=== PATIENT | female | born 1950 | race Caucasian/White ===

== ENCOUNTER 2017-12-03 05:20 | Inpatient (IN) | payer BC, MEDICARE ==
[~2017-12-03] VITALS: Ht 175.3 cm; Wt 61.0 kg
[2017-12-03] MEDS ORDERED: SODIUM CHLORIDE FLUSH 10ML SYR IVF ONE (06:00)
[2017-12-03] MEDS ORDERED: MORPHINE SULFATE 4 MG/ML, 1ML ONE (06:53)
[2017-12-03] MEDS ORDERED: morphine SULFATE 10 MG/ML, 1ML IVPush ONE (07:00)
[2017-12-03] MEDS ORDERED: MORPHINE SULFATE 4 MG/ML, 1ML IVPush PRN (09:00)
[2017-12-03] MEDS ORDERED: KETOROLAC 30 MG/1 ML IVPush ONE (09:00)
[2017-12-03 09:17] LABS: BASOPHILS % (AUTO) 0 % (0-1); EOSINOPHILS # (AUTO) 0.02 x10^3/uL (0-0.4); EOSINOPHILS % (AUTO) 0 % (1-7); LYMPHOCYTES # (AUTO) 1.74 x10^3/uL (1-3.4); LYMPHOCYTES % (AUTO) 19 % (22-44); MD NO; MEAN CORPUSCULAR HEMOGLOBIN 33.9 pg (27.0-34.8); MEAN CORPUSCULAR HGB CONC 33.8 g/dL (32.4-35.8); MEAN CORPUSCULAR VOLUME 100.3 fL (80-100); MEAN PLATELET VOLUME 10.3 fL (7.4-10.4); MONOCYTES % (AUTO) 7 % (2-9); NEUTROPHILS # (AUTO) 6.68 x10^3/uL (1.8-6.8); NEUTROPHILS % (AUTO) 74 % (42-75); PLATELET COUNT 157 x10^3/uL (130-400); RED BLOOD COUNT 4.02 x10^6/uL (3.82-5.3); RED CELL DISTRIBUTION WIDTH 12.7 % (9.6-15.2)
[2017-12-03 09:24] LABS: INTERNATIONAL NORMALIZED RATIO 1.04 (0.93-1.1); PROTHROMBIN TIME 10.7 Seconds (9.6-11.5)
[2017-12-03 09:27] LABS: ANION GAP 8 mmol/L (5-15); CALCIUM 8.7 mg/dL (8.5-10.1); CHLORIDE 107 mmol/L (98-107)
[2017-12-03] MEDS ORDERED: LORazepam 2 MG/ML, 1ML IV PRN ×5 (09:30)
[2017-12-03 09:46] VITALS: BP 152/69
[2017-12-03] MEDS ORDERED: D5%-LACTATED RINGERS 1,000 ML IV SCH (11:00)
[2017-12-03] MEDS ORDERED: LIDOCAINE-MPF 2% ,5ML ONE (11:11)
[2017-12-03] MEDS ORDERED: PROPOFOL 10 MG/ML, 20ML ONE (11:11)
[2017-12-03] MEDS ORDERED: CEFAZOLIN 1,000 MG ONE (11:11)
[2017-12-03] MEDS ORDERED: ROCURONIUM 10MG/ML,5ML ONE (11:11)
[2017-12-03] MEDS ORDERED: BUPIVACAINE/PF 0.25% ONE (11:14)
[2017-12-03] MEDS ORDERED: MIDAZOLAM 1 MG/ML, 2ML ONE (11:15)
[2017-12-03] MEDS ORDERED: FENTANYL PF 100 MCG/2ML ONE (11:15)
[2017-12-03] MEDS ORDERED: OXYcodone 5 MG/5 ML ORAL.SOL UDC PO PRN (11:30)
[2017-12-03] MEDS ORDERED: ALBUTEROL SULFATE 2.5 MG/3 ML NPPB PRN ×2 (11:30→22:30)
[2017-12-03] MEDS ORDERED: ONDANSETRON 2MG/ML, 2ML IVPush PRN (11:30)
[2017-12-03] MEDS ORDERED: ACETAMINOPHEN 325 MG TABLET PO PRN ×2 (11:30→15:30)
[2017-12-03] MEDS ORDERED: METOPROLOL 1 MG/ML, 5ML IV PRN (11:30)
[2017-12-03] MEDS ORDERED: MEPERIDINE/PF 25MG/0.5ML IVPush PRN (11:30)
[2017-12-03] MEDS ORDERED: EPHEDRINE 50 MG/ML, 1ML IVPush PRN (11:30)
[2017-12-03] MEDS ORDERED: morphine SULFATE 10 MG/ML, 1ML IV PRN (11:30)
[2017-12-03] MEDS ORDERED: hydrALAzine 20 MG/ML, 1ML IV PRN (11:30)
[2017-12-03] MEDS ORDERED: FENTANYL PF 100 MCG/2ML IV PRN (11:30)
[2017-12-03] MEDS ORDERED: ONDANSETRON ODT 8 MG PO PRN (11:30)
[2017-12-03] MEDS ORDERED: LABETALOL 5MG/ML, 20ML IV PRN (11:30)
[2017-12-03] MEDS ORDERED: PROMETHAZINE 25 MG/ML, 1ML IV PRN (11:30)
[2017-12-03] MEDS ORDERED: GLYCOPYRROLATE 0.2MG/1ML, 5ML ONE (11:44)
[2017-12-03] MEDS ORDERED: NEOSTIGMINE 1 MG/ML, 10ML ONE (11:44)
[2017-12-03] MEDS ORDERED: DEXAMETHASONE 4 MG/ML, 1ML ONE (13:02)
[2017-12-03] MEDS ORDERED: ONDANSETRON 2MG/ML, 2ML ONE (13:02)
[2017-12-03 14:50] VITALS: BP 145/75
[2017-12-03] MEDS: D5%-LACTATED RINGERS 1,000 ML IV SCH ×2 (15:30→23:30)
[2017-12-03] MEDS ORDERED: ALUMINUM/MAG/SIMETHICONE 30 ML UDC PO PRN (15:30)
[2017-12-03] MEDS ORDERED: BISACODYL 10 MG SUPP PR PRN (15:30)
[2017-12-03] MEDS ORDERED: HYDROmorphone 1 MG/ML, 1ML IV PRN (15:30)
[2017-12-03] MEDS ORDERED: DIPHENHYDRAMINE 25 MG CAPSULE PO PRN (15:30)
[2017-12-03] MEDS ORDERED: MAGNESIUM HYDROXIDE 8%, 30ML UDC PO PRN (15:30)
[2017-12-03] MEDS ORDERED: DIAZEPAM 5 MG TABLET PO PRN (15:30)
[2017-12-03] MEDS ORDERED: HYDROcodone/APAP 10/325 MG TABLET PO PRN (15:30)
[2017-12-03] MEDS ORDERED: CEFAZOLIN 2,000 MG in DEXTROSE 5% 50 ML IVPB SCH (15:30)
[2017-12-03] MEDS ORDERED: SENNA/DOCUSATE TABLET PO PRN (15:30)
[2017-12-03] MEDS ORDERED: ONDANSETRON 4 MG TABLET PO PRN (15:30)
[2017-12-03] MEDS ORDERED: CEFAZOLIN PMX 2GM/100ML 100 ML IVPB SCH (20:00)
[2017-12-03] MEDS: SODIUM CHLORIDE FLUSH 10ML SYR IVF SCH (20:13)
[2017-12-03] MEDS: DOCUSATE 100 MG CAPSULE PO SCH (20:20)
[2017-12-03] MEDS: OXYcodone 5 MG/5 ML ORAL.SOL UDC PO PRN (20:21)
[2017-12-03 20:25] VITALS: BP 143/73
[2017-12-03 20:26] VITALS: BP 143/73
[2017-12-04] VITALS: BP_SYST 106; BP_SYST 120; BP_DIAS 61; BP_DIAS 99
[2017-12-04 04:19] VITALS: BP 119/62
[2017-12-04 07:30] VITALS: BP 128/70
[2017-12-04] MEDS ORDERED: MULTIVITAMINS/MINERALS TABLET PO SCH (09:00)
[2017-12-04] MEDS: DOCUSATE 100 MG CAPSULE PO SCH (09:01)
[2017-12-04] MEDS: SODIUM CHLORIDE FLUSH 10ML SYR IVF SCH (09:01)
[2017-12-04] MEDS: OXYcodone 5 MG/5 ML ORAL.SOL UDC PO PRN (11:20)
[2017-12-04] MEDS ORDERED: OXYC-307 PO (11:30)
[2017-12-04 12:33] VITALS: BP 154/68
== END 2017-12-04 13:15 | disposition home or self-care (01) | DRG 494 ==
LOC: ED 05:55 → EDIP 08:47 → 4NOR 09:33 → DCLOUNGE 12-04 13:15
PROVIDERS: ADMIT Internal Medicine; ATTEND Internal Medicine
PROC: 0PSC04Z Reposition Right Humeral Head with Internal Fixation Device, Open Approach (ICD-10-PCS; principal; 2017-12-03 11:30)
DX: S42.231A 3-part fracture of surgical neck of right humerus, initial encounter for closed fracture (principal); F10.129 Alcohol abuse with intoxication, unspecified; S42.211A Unspecified displaced fracture of surgical neck of right humerus, initial encounter for closed fracture; J45.909 Unspecified asthma, uncomplicated; S01.91XA Laceration without foreign body of unspecified part of head, initial encounter; Z90.710 Acquired absence of both cervix and uterus; Y93.89 Activity, other specified; W01.0XXA Fall on same level from slipping, tripping and stumbling without subsequent striking against object, initial encounter; Y92.002 Bathroom of unspecified non-institutional (private) residence as the place of occurrence of the external cause
CPT/HCPCS: 36415; 72125; 72141; 76001; 80048; 80307; 83735; 85014; 85018; 85025; 85610; 93005; 96374; C1713; J0690; J1100; J1885; J2250; J2405; J2704; J2710; J3010; J3490; J2060; J2270; J7121